=== PATIENT | female | born 1970 | race Caucasian/White ===

== ENCOUNTER 2024-10-09 08:31 | Observation (INO) ==
[2024-10-09 08:55] LABS: ABS Basophils 0.1 10^3/uL (0.0-0.1); ABS Eosinophils 0.1 10^3/uL (0.0-0.5); ABS Lymphocytes 2.4 10^3/uL (1.0-4.8); ABS Monocytes 0.6 10^3/uL (0.0-0.9); ABS Nucleated RBC 0.01 10^3/ul; Eosinophil % 1.6 %; Hematocrit 45.1 % (35-45); Lymphocyte % 33.8 %; Mean Corpuscular Hemoglobin 30.6 pg (27-33); Mean Corpuscular Hgb Conc 35.4 g/dL (31-36); Mean Corpuscular Volume 86.5 fL (80-97); Mean Platelet Volume 8.5 fL (7.5-11.2); Nucleated Red Blood Cells % 0.1 %/100WBC (0.0-0.8); Platelet Count 367 10^3/uL (150-450); Red Blood Count 5.22 10^6/uL (3.63-4.92); White Blood Count 7.1 10^3/uL (3.8-11.8)
[2024-10-09] MEDS: Iodixanol 320 (CONTRAST) 100 ML SDV IV ONE (08:56)
[2024-10-09 09:05] LABS: Activated Partial Thrombo Time 29.6 seconds (26.0-38.0); INR 0.97 (0.85-1.14)
[2024-10-09 10:20] LABS: Albumin 4.3 g/dL (3.5-5.7); Albumin/Globulin Ratio 1.3 (1-3); Calcium 9.5 mg/dL (8.6-10.3); Creatinine, Serum 0.56 mg/dL (0.51-0.95); Direct Bilirubin 0.1 mg/dL (0.03-0.18); Globulin 3.2 g/dL (2-4); HDL Cholesterol 42.8 mg/dL; Indirect Bilirubin 0.5 mg/dL (0.3-1.0); Potassium 4.5 mmol/L (3.5-5.0); Total Bilirubin 0.6 mg/dL (0.2-1.0); Total Protein 7.5 g/dL (6.4-8.9)
[2024-10-09] MEDS ORDERED: Sulfur Hexaflouride MICROSPHR 25 MG VIAL IV PRN (11:32)
[2024-10-09] MEDS: Insulin GLARGINE 100 un/ml 10 ml VIAL SUBCUT ONE (16:09)
[2024-10-09] MEDS ORDERED: Dextrose 50% Syringe 50 ml 25 GM/50 ML SYRINGE IV PUSH PRN ×2 (17:33→17:34)
[2024-10-09 19:29] LABS: C Reactive Protein 1.6 mg/L (<8.01)
[2024-10-09 21:55] LABS: Urine Appearance Clear; Urine Bilirubin Negative (Negative); Urine Blood Negative (Negative); Urine Color Light-Yellow; Urine Glucose 4+ (>=1000 mg/dL) (Negative); Urine Ketones Negative (Negative); Urine Nitrite Negative (Negative); Urine Protein Negative (Negative); Urine Urobilinogen Negative (Negative); Urine pH 6.5 (5.0-8.0)
[2024-10-09 22:06] LABS: Urine Benzodiazepine Screen None Detected (None Detect); Urine Cannabinoids Screen None Detected (None Detect); Urine Opiates Screen None Detected (None Detect)
[2024-10-10 07:25] LABS: ABS Basophils 0.1 10^3/uL (0.0-0.1); ABS Eosinophils 0.1 10^3/uL (0.0-0.5); ABS Lymphocytes 2.5 10^3/uL (1.0-4.8); ABS Monocytes 0.5 10^3/uL (0.0-0.9); ABS Neutrophils 2.9 10^3/uL (1.5-7.6); Eosinophil % 1.9 %; Hematocrit 44.6 % (35-45); Hemoglobin 15.5 g/dL (11.5-14.3); Lymphocyte % 40.9 %; Mean Corpuscular Hemoglobin 30.1 pg (27-33); Mean Corpuscular Hgb Conc 34.8 g/dL (31-36); Mean Corpuscular Volume 86.6 fL (80-97); Mean Platelet Volume 8.4 fL (7.5-11.2); Nucleated Red Blood Cells % 0.1 %/100WBC (0.0-0.8); Platelet Count 354 10^3/uL (150-450); Red Blood Count 5.15 10^6/uL (3.63-4.92); Red Cell Distribution Width 13.1 % (12-17); White Blood Count 6.1 10^3/uL (3.8-11.8)
[2024-10-10 08:08] LABS: Albumin/Globulin Ratio 1.3 (1-3); Calcium 9.4 mg/dL (8.6-10.3); Creatinine, Serum 0.53 mg/dL (0.51-0.95); Globulin 3.1 g/dL (2-4); Magnesium 1.7 mg/dL (1.9-2.7); Potassium 4.5 mmol/L (3.5-5.0); Total Bilirubin 0.7 mg/dL (0.2-1.0); Total Protein 7.1 g/dL (6.4-8.9); eGFR CKD-EPI 108.5 (>60)
[2024-10-10] MEDS: Insulin GLARGINE 100 un/ml 10 ml VIAL SUBCUT SCH (09:19)
[2024-10-10] MEDS: Magnesium Sulfate 2 gm BAG 2 GM/50 ML BAG IVPB ONE (13:26)
[2024-10-10] MEDS: Enoxaparin 40 MG/0.4 ML SYR SUBCUT SCH (20:50)
[2024-10-11 09:39] VITALS: BP 145/83
== END 2024-10-11 13:20 | disposition home or self-care (01) ==
LOC: ED 08:31 → EDHOLD 08:31 → SUATTDRO 11:32 → MEDTELE 12:27
PROVIDERS: ADMIT Internal Medicine; ATTEND Internal Medicine